=== PATIENT | female | born 1980 | race Caucasian/White ===

== ENCOUNTER 2018-06-09 15:09 | Emergency (ER) | payer MEDICAID ==
[~2018-06-09] VITALS: Ht 160 cm; Wt 54.4 kg
[2018-06-09 15:19] VITALS: BP 122/74
[2018-06-09] MEDS ORDERED: KETOROLAC TROMETHAMINE INJ 60 MG/2 ML VIAL IM ONE ×2 (15:55→16:00)
[2018-06-09] MEDS ORDERED: HYDROCODONE/APAP 5/325MG 1 EACH TABLET ONE (15:56)
[2018-06-09] MEDS ORDERED: DIAZEPAM 5 MG TABLET ONE (15:56)
[2018-06-09] MEDS ORDERED: HYDROCODONE/APAP 5/325MG 1 EACH TABLET PO ONE (16:00)
[2018-06-09] MEDS ORDERED: DIAZEPAM 10 MG TABLET PO ONE (16:00)
[2018-06-09] MEDS ORDERED: predniSONE 20 MG TABLET ONE (16:29)
[2018-06-09] MEDS ORDERED: predniSONE 20 MG TABLET PO ONE (16:30)
--- NOTE | 2018-06-09 16:38 | NUR ---
For discharge- ACI given,verbalized understanding. Home ambulatory in stable condition with family
== END 2018-06-09 16:41 | disposition home or self-care (01) ==
LOC: ER 15:11
DX: M54.40 Lumbago with sciatica, unspecified side (principal)
CPT/HCPCS: A4606; J1885; Z7610

== ENCOUNTER 2020-07-29 15:28 | Emergency (ER) | payer MEDICAID, OTHER ==
[~2020-07-29] VITALS: Ht 157.5 cm; Wt 53.1 kg
--- NOTE | 2020-07-29 16:00 | NUR ---
bib self c/o ABDOMINAL PAIN X 2 DAYS,VOMITED TODAY. vs checked. awaiting md gardner
[2020-07-29 16:32] LABS: BASOPHILS # (AUTO) 0.1 /CMM (0.0-0.2); BASOPHILS % (AUTO) 0.8 % (0.0-2.0); EOSINOPHILS % (AUTO) 0.3 % (0.0-6.0); HEMATOCRIT 40 % (33-45); HEMOGLOBIN 13.4 g/dL (11.5-14.8); LYMPHOCYTES # (AUTO) 1.8 /CMM (0.8-4.8); LYMPHOCYTES % (AUTO) 15.4 % (20.0-44.0); MEAN CORPUSCULAR HGB CONC 34 g/dl (31.0-36.0); MEAN CORPUSCULAR VOLUME 90 fL (82-100); MONOCYTES # (AUTO) 0.8 /CMM (0.1-1.30); MONOCYTES % (AUTO) 6.8 % (2.0-12.0); NEUTROPHILS # (AUTO) 9.1 /CMM (1.8-8.9); NEUTROPHILS % (AUTO) 76.7 % (43.0-81.0); PLATELET COUNT (AUTO) 183 /CMM (150-450); RED BLOOD CELL COUNT(AUTO) 4.42 MIL/uL (4.0-5.2); WHITE BLOOD COUNT (AUTO) 11.9 K/uL (4.3-11.0)
[2020-07-29 16:37] LABS: BILIRUBIN,URINE Negative (NEGATIVE); COLOR,URINE YELLOW (YELLOW); LEUKOCYTE ESTERASE ,URINE Trace (NEGATIVE); NITRITE, URINE Positive (NEGATIVE); PROTEIN,URINE Negative (NEGATIVE); UGLUCOSE Negative (NEGATIVE); UROBILINOGEN,URINE 0.2 EU/dL (0.2)
[2020-07-29 16:41] LABS: CALCIUM, SERUM 8.7 mg/dL (8.5-10.1); CREATININE 0.7 mg/dL (0.6-1.3); POTASSIUM 3.4 mmol/L (3.5-5.1)
[2020-07-29 16:46] LABS: ALBUMIN 3.8 g/dL (3.4-5.0); BILIRUBIN,DIRECT 0.1 mg/dL (0.0-0.2); BILIRUBIN,TOTAL 0.4 mg/dL (0.2-1.0)
[2020-07-29 16:56] LABS: BACTERIA,URINE 3+ /HPF (None Seen); SQUAMOUS EPITHELIAL CELL,UR Few /HPF (None Seen)
[2020-07-29] MEDS ORDERED: ONDANSETRON HCL/PF 4 MG/2 ML VIAL ONE (16:59)
[2020-07-29] MEDS: ONDANSETRON HCL/PF - ER 4 MG/2 ML VIAL IV ONE (17:00)
[2020-07-29] MEDS: IV NS 0.9% 1,000 ML IV ONE ×2 (17:00→18:00)
--- NOTE | 2020-07-29 17:16 | NUR ---
us by bedside
--- NOTE | 2020-07-29 17:30 | NUR ---
out for ct
[2020-07-29] MEDS ORDERED: IV NS 0.9% 250 ML IV ONE (17:33)
[2020-07-29] MEDS ORDERED: IOHEXOL-300 100 ML VIAL IV ONE (17:33)
--- NOTE | 2020-07-29 17:46 | NUR ---
back from ct
[2020-07-29] MEDS ORDERED: HYDROMORPHONE INJ 2 MG/ML DISP.SYRIN ONE (17:59)
--- NOTE | 2020-07-29 18:55 | NUR ---
pt still complaining of nausea and 'heart burn', also states that she would like to get sopme medication for pain. dr. zuniga made aware. per md he will order gi cocktail.
[2020-07-29] MEDS ORDERED: MORPHINE SULFATE INJ 4 MG/ML DISP.SYRIN ONE (19:01)
[2020-07-29] MEDS ORDERED: MAG HYDROX/AL HYDROX/SIMETH 30 ML UDC ONE (19:01)
[2020-07-29] MEDS ORDERED: LIDOCAINE VISCOUS 2% UD 15 ML UDC ONE (19:01)
[2020-07-29] MEDS ORDERED: FAMOTIDINE/PF INJ 20 MG/2 ML VIAL IV ONE (19:02)
[2020-07-29] MEDS: LIDOCAINE VISCOUS 2% UD 15 ML UDC MM ONE (19:05)
[2020-07-29] MEDS: FAMOTIDINE/PF INJ 20 MG/2 ML VIAL IV ONE (19:05)
[2020-07-29] MEDS: MORPHINE SULFATE INJ 2 MG/ML DISP.SYRIN IV ONE (19:05)
[2020-07-29] MEDS: MAG HYDROX/AL HYDROX/SIMETH 30 ML UDC PO ONE (19:05)
--- NOTE | 2020-07-29 19:52 | NUR ---
Patient discharged to home in stable condition. Written and verbal after care instructions given. Patient verbalizes understanding of instruction.
[2020-07-29 19:53] VITALS: BP 129/81
== END 2020-07-29 19:53 | disposition home or self-care (01) ==
LOC: ER 15:28
DX: R10.11 Right upper quadrant pain (principal); R11.2 Nausea with vomiting, unspecified
CPT/HCPCS: 36415; 74177; 76705; 80048; 80076; 81001; 83690; 84703; 85025; 87086; 96361; 96374; 96375; 99285; J2270; J2405; J3490; J7030; J7050; Q9967; 87186-TC; J1170